=== PATIENT | female | born 1995 | race Caucasian/White ===

== ENCOUNTER 2019-04-23 14:53 | Emergency (ER) | payer MEDICAID ==
[~2019-04-23] VITALS: Ht 162.6 cm; Wt 81.6 kg
[2019-04-23 15:07] VITALS: BP_SYST 129
--- NOTE | 2019-04-23 17:15 | NUR ---
Called patient x 1 , no answer
--- NOTE | 2019-04-23 17:20 | NUR ---
Called patient x 2 , no answer
== END 2019-04-23 17:20 | disposition left against medical advice (07) ==
LOC: SED 14:53
DX: R05 Cough (principal); Z53.21 Procedure and treatment not carried out due to patient leaving prior to being seen by health care provider
CPT/HCPCS: 36415; 86710

== ENCOUNTER 2019-04-23 23:36 | Emergency (ER) | payer MEDICAID ==
[~2019-04-23] VITALS: Ht 162.6 cm; Wt 83.0 kg
[2019-04-23 23:42] VITALS: BP_SYST 143
--- NOTE | 2019-04-23 23:47 | NUR ---
Patient triaged and placed in waiting room. VSS and patient appears in no acute distress at this time. Accompanied by family, awaiting available bed, and MD notified of need for MSE.
--- NOTE | 2019-04-24 03:20 | NUR ---
Patient to ER bed 7 to gown for evaluation. Side rails up. Report given to CLARISSE Andrade.
--- NOTE | 2019-04-24 03:30 | NUR ---
Pt presents to ER from home with c/o chest wall pain, cough, runny nose, and bilateral ear pain. Pt A&Ox4. Pt states she is 35 weeks . Pt midsternal chest pain with dry cough. Pt states chest pain is non-radiating. Pt states when cough, chest pain is 6/10. Pt states cough began 3 days ago. Pt states chest pain with cough began yesterday. Pt states bilateral ear pain began 3 days ago. Pt states pain 5/10. Pt denies ringing, discharge and hearing loss. Pt states runny nose began 3 days ago. Pt denies fever, chills, nausea, vomiting, and SOB. Upon assessment, pt has bilateral clear lungs with no use of accessory muscles. Will continue to monitor.
--- NOTE | 2019-04-24 03:54 | NUR ---
ER Dr. Deng at bedside examining patient.
[2019-04-24 04:16] VITALS: BP_SYST 140
--- NOTE | 2019-04-24 04:16 | NUR ---
Patient given written and verbal discharge instructions and verbalizes understanding. ER MD Deng discussed with patient the results and treatment provided. Patient in stable condition. ID arm band removed. No Rx given. Patient educated on pain management and to follow up with PMD. Pain Scale 4/10. MD Deng aware of ear pain, pt advised to take OTC Tylenol and to follow up with pt OB MD. Opportunity for questions provided and answered. Medication side effect fact sheet provided.
== END 2019-04-24 04:16 | disposition home or self-care (01) ==
LOC: SED 23:36
DX: O99.513 Diseases of the respiratory system complicating pregnancy, third trimester (principal); O16.3 Unspecified maternal hypertension, third trimester; R07.89 Other chest pain; R05 Cough; J06.9 Acute upper respiratory infection, unspecified; Z3A.35 35 weeks gestation of pregnancy
CPT/HCPCS: 93005; 99283